=== PATIENT | male | born 1940 | race Caucasian/White ===

== ENCOUNTER 2024-04-03 19:52 | Inpatient (IN) | payer MEDICARE, OTHER ==
[~2024-04-03] VITALS: Ht 152.4 cm; Wt 60.3 kg
[2024-04-03] MEDS ORDERED: ACET-3117 PO (20:14)
[2024-04-03] MEDS ORDERED: ASPI-495 PO (20:26)
[2024-04-03] MEDS ORDERED: MAGN400C PO (20:26)
[2024-04-03] MEDS ORDERED: ROPI0.5T4 PO (20:26)
[2024-04-03] MEDS ORDERED: APIX2.5T PO (20:26)
[2024-04-03] MEDS ORDERED: FAMO-132 PO (20:26)
[2024-04-03] MEDS ORDERED: NICO1PAT35 TD (20:26)
[2024-04-03] MEDS ORDERED: AMLO-212 PO (20:26)
[2024-04-03] MEDS ORDERED: MAG30ORA GT (20:26)
[2024-04-03] MEDS ORDERED: CIPR-263 PO (20:26)
[2024-04-03] MEDS ORDERED: PYRI50CA PO (20:26)
[2024-04-03] MEDS ORDERED: ESCI-9 PO (20:26)
[2024-04-03] MEDS ORDERED: LORA0.5T48 PO (20:26)
[2024-04-03] MEDS ORDERED: DOCU100C36 PO (20:26)
[2024-04-03] MEDS ORDERED: MECL-159 PO (20:26)
[2024-04-03] MEDS ORDERED: METO-358 PO (20:26)
[2024-04-03] MEDS ORDERED: THIA100T74 PO (20:26)
[2024-04-03] MEDS ORDERED: ATOR80TA PO (20:26)
[2024-04-03 21:15] LABS: BASOPHILS # (AUTO) 0.1 K/UL (0.0-0.2); BASOPHILS % (AUTO) 1.2 % (0.0-2.0); EOSINOPHILS # (AUTO) 0.2 K/uL (0.0-0.7); EOSINOPHILS % (AUTO) 2.4 % (0.0-7.0); HEMATOCRIT 33.6 % (36.7-47.1); HEMOGLOBIN 10.7 g/dL (12.5-16.3); LYMPHOCYTES # (AUTO) 2.1 K/uL (0.8-4.8); LYMPHOCYTES % (AUTO) 24.5 % (20.5-51.5); MEAN CORPUSCULAR HEMOGLOBIN 26.3 uug (23.8-33.4); MEAN CORPUSCULAR HGB CONC 32 g/dL (32.5-36.3); MEAN CORPUSCULAR VOLUME 82.4 fL (73.0-96.2); MONOCYTES # (AUTO) 0.9 K/uL (0.1-1.30); MONOCYTES % (AUTO) 10.8 % (0.0-11.0); NEUTROPHILS # (AUTO) 5.3 K/uL (1.8-8.9); NEUTROPHILS % (AUTO) 61.1 % (38.5-71.5); PLATELET COUNT (AUTO) 271 K/uL (152-348); RED BLOOD CELL COUNT(AUTO) 4.08 MIL/uL (4.06-5.63); RED CELL DISTRIBUTION WIDTH 21.7 % (12.1-16.2); WHITE BLOOD COUNT (AUTO) 8.7 K/uL (3.6-10.2)
[2024-04-03 21:22] LABS: CALCIUM 9.1 mg/dL (8.5-10.1); CARBON DIOXIDE 25 mmol/L (21-32); CHLORIDE 102 mmol/L (98-107); CREATININE 1.6 mg/dL (0.6-1.3); GLUCOSE 218 mg/dL (74-106); POTASSIUM 3.5 mmol/L (3.5-5.1); SODIUM SERUM 137 mmol/L (136-145); UREA NITROGEN, BLOOD 29 mg/dL (7-18)
[2024-04-03 21:28] LABS: *BILIRUBIN,URIN NEGATIVE (NEGATIVE); *CLARITY,URINE CLEAR (CLEAR); *COLOR,URINE YELLOW (YELLOW); *KETONES,URINE NEGATIVE (NEGATIVE); *PROTEIN,URINE 1+ (NEGATIVE); *UROBILINOGEN,URINE 0.2 E.U./dl (NORMAL); LEUKOCYTE ESTERASE ,URINE TRACE (NEGATIVE); NITRITE, URINE NEGATIVE (NEGATIVE); PH,URINE 5.5 (5.0-8.0); UGLUCOSE TRACE (NEGATIVE)
[2024-04-03 21:28] LABS: ALANINE AMINOTRANSFERASE 40 U/L (16-63); ALKALINE PHOSPHATASE 91 U/L (50-136); ASPARTATE AMINOTRANSFERASE 21 U/L (15-37); BILIRUBIN,DIRECT 0.2 mg/dL (0.0-0.2); BILIRUBIN,TOTAL 0.4 mg/dL (0.2-1.0); TOTAL PROTEIN, SERUM 6.8 g/dL (6.4-8.2)
[2024-04-03 21:33] LABS: *BLOOD, URINE TRACE (NEGATIVE)
[2024-04-03 21:36] LABS: THYROID STIMULATING HORMONE 1.686 mIU/mL (0.358-3.740)
[2024-04-03 21:44] LABS: *AMPHETAMINE, URINE NEGATIVE (NEGATIVE); *BARBITURATE, URINE NEGATIVE (NEGATIVE); *BENZODIAZEPINE, URINE NEGATIVE (NEGATIVE); *CANNABINOID, URINE NEGATIVE (NEGATIVE); *COCCAINE, URINE NEGATIVE (NEGATIVE); *OPIATE, URINE NEGATIVE (NEGATIVE); *PHENCYCLIDINE SCREEN,URINE NEGATIVE (NEGATIVE); FENTANYL, URINE NEGATIVE (NEGATIVE)
[2024-04-03 21:59] LABS: DIFFERENTIAL COMMENT 1
[2024-04-03 22:01] LABS: ETHANOL < 3 MG/DL (0-10)
[2024-04-03 22:07] LABS: ACETAMINOPHEN < 10.0 ug/mL (10-30)
[2024-04-03 22:27] LABS: BACTERIA,URINE FEW /HPF (NONE SEEN); SQUAMOUS EPITHELIAL CELL,UR FEW /HPF (NONE SEEN); URINE AMORPHOUS URATE MODERATE /HPF
[2024-04-04] MEDS ORDERED: MAG HYDROX/AL HYDROX/SIMETH 30 ML LIQUID UDC PO PRN (03:45)
[2024-04-04] MEDS: BLOOD SUGAR DIAGNOSTIC 1 EACH STRIP VI ONE (03:45)
[2024-04-04] MEDS ORDERED: MAGNESIUM HYDROXIDE 30 ML LIQUID UDC PO PRN (03:45)
[2024-04-04] MEDS ORDERED: ACETAMINOPHEN 325 MG TABLET PO PRN (03:45)
[2024-04-04] MEDS ORDERED: ZOLPIDEM 5 MG TABLET PO PRN (03:45)
[2024-04-04] MEDS ORDERED: LORAZEPAM 1 MG TABLET PO PRN (03:45)
[2024-04-04 04:00] VITALS: BP 144/90; TEMP 98.1; O2SAT 98
[2024-04-04 08:01] VITALS: BP 156/91; TEMP 98; O2SAT 99
[2024-04-04] MEDS ORDERED: ONDA4VIA23 IV (12:19)
[2024-04-04] MEDS ORDERED: ERGO500040 PO (12:19)
[2024-04-04] MEDS ORDERED: SENN-18 PO (12:19)
[2024-04-04] MEDS: THIAMINE HCL 100 MG TABLET PO SCH (13:11)
[2024-04-04] MEDS: ESCITALOPRAM OXALATE 10 MG TABLET PO SCH (13:11)
[2024-04-04 15:35] VITALS: BP 153/89; TEMP 98.2; O2SAT 99
[2024-04-04] MEDS: CEphaleXIN 500 MG CAPSULE PO SCH (17:39)
[2024-04-04 20:04] VITALS: BP 174/88; TEMP 97.9; O2SAT 99
[2024-04-04] MEDS: QUETIAPINE FUMARATE 25 MG TABLET PO SCH (20:24)
[2024-04-04 21:08] VITALS: BP 144/90
[2024-04-05 07:59] VITALS: BP 146/96; TEMP 98.2; O2SAT 99
[2024-04-05] MEDS: MULTIVITAMINS,THERAPEUTIC TABLET PO SCH (08:54)
[2024-04-05 16:31] VITALS: BP 173/99; TEMP 98.3; O2SAT 98
[2024-04-05] MEDS ORDERED: SENNOSIDES 1 TABLET PO PRN (17:00)
[2024-04-05] MEDS ORDERED: MAG HYDROX/AL HYDROX/SIMETH 30 ML LIQUID UDC GT PRN (17:00)
[2024-04-05] MEDS: AMLODIPINE 5 MG TABLET PO SCH (17:14)
[2024-04-05] MEDS: DOCUSATE SODIUM 100 MG CAPSULE PO SCH (17:14)
[2024-04-05] MEDS: METOPROLOL SUCCINATE XL 50 MG TAB.SR.24H PO SCH (17:15)
[2024-04-05] MEDS: APIXABAN 2.5 MG TABLET PO SCH (18:06)
[2024-04-05 20:36] VITALS: BP 157/88; TEMP 98; O2SAT 99
[2024-04-05] MEDS: ropiniROLE 0.5 MG TABLET PO SCH (20:45)
[2024-04-05] MEDS: ATORVASTATIN 40 MG TABLET PO SCH (20:45)
[2024-04-05 21:00] VITALS: BP 147/82; O2SAT 97
[2024-04-06 08:23] VITALS: BP 147/81; TEMP 98.1; O2SAT 98
[2024-04-06] MEDS: THIAMINE HCL 100 MG TABLET PO SCH (08:31)
[2024-04-06] MEDS: FAMOTIDINE 20 MG TABLET PO SCH (08:32)
[2024-04-06] MEDS: PYRIDOXINE HCL 100 MG TABLET PO SCH (08:32)
[2024-04-06] MEDS ORDERED: NICOTINE 21 MG/24HR PATCH TD SCH (09:00)
[2024-04-06 16:19] VITALS: BP 125/77; TEMP 98; O2SAT 98
[2024-04-06] MEDS: NICOTINE 14 MG/24HR PATCH TD SCH (17:04)
[2024-04-06 20:00] VITALS: BP 151/71; TEMP 98.2; O2SAT 96
[2024-04-07 08:05] VITALS: BP 138/79; TEMP 98.3; O2SAT 98
[2024-04-07] MEDS: ERGOCALCIFEROL 50,000 UNIT CAPSULE PO SCH (08:20)
[2024-04-07 16:32] VITALS: BP 144/74; TEMP 98.1; O2SAT 98
[2024-04-07 21:13] VITALS: BP 157/77; TEMP 98; O2SAT 98
[2024-04-08 08:32] LABS: BASOPHILS # (AUTO) 0.1 K/UL (0.0-0.2); BASOPHILS % (AUTO) 1.4 % (0.0-2.0); EOSINOPHILS # (AUTO) 0.2 K/uL (0.0-0.7); EOSINOPHILS % (AUTO) 2.5 % (0.0-7.0); HEMATOCRIT 35.2 % (36.7-47.1); HEMOGLOBIN 11.3 g/dL (12.5-16.3); LYMPHOCYTES # (AUTO) 2.4 K/uL (0.8-4.8); LYMPHOCYTES % (AUTO) 30.8 % (20.5-51.5); MEAN CORPUSCULAR HEMOGLOBIN 26.8 uug (23.8-33.4); MEAN CORPUSCULAR HGB CONC 32 g/dL (32.5-36.3); MEAN CORPUSCULAR VOLUME 83.3 fL (73.0-96.2); MONOCYTES # (AUTO) 0.8 K/uL (0.1-1.30); NEUTROPHILS # (AUTO) 4.4 K/uL (1.8-8.9); NEUTROPHILS % (AUTO) 55.3 % (38.5-71.5); PLATELET COUNT (AUTO) 381 K/uL (152-348); RED BLOOD CELL COUNT(AUTO) 4.23 MIL/uL (4.06-5.63); RED CELL DISTRIBUTION WIDTH 23.1 % (12.1-16.2); WHITE BLOOD COUNT (AUTO) 7.9 K/uL (3.6-10.2)
[2024-04-08 08:38] LABS: DIFFERENTIAL COMMENT 1
[2024-04-08 08:41] LABS: ALANINE AMINOTRANSFERASE 34 U/L (16-63); ALBUMIN 3.6 g/dL (3.4-5.0); ALKALINE PHOSPHATASE 88 U/L (50-136); ASPARTATE AMINOTRANSFERASE 12 U/L (15-37); BILIRUBIN,TOTAL 0.5 mg/dL (0.2-1.0); CALCIUM 9.4 mg/dL (8.5-10.1); CARBON DIOXIDE 31 mmol/L (21-32); CHLORIDE 103 mmol/L (98-107); CREATININE 1.4 mg/dL (0.6-1.3); GLUCOSE 113 mg/dL (74-106); MAGNESIUM 2.4 mg/dL (1.8-2.4); PHOSPHOROUS 3.6 mg/dL (2.5-4.9); POTASSIUM 4.7 mmol/L (3.5-5.1); SODIUM SERUM 139 mmol/L (136-145); TOTAL PROTEIN, SERUM 7.4 g/dL (6.4-8.2); UREA NITROGEN, BLOOD 20 mg/dL (7-18)
[2024-04-08 08:42] VITALS: BP 154/75; TEMP 98; O2SAT 98
[2024-04-08 15:26] VITALS: BP 117/68; TEMP 98; O2SAT 98
[2024-04-08 19:58] VITALS: BP 156/74; TEMP 97.9; O2SAT 96
[2024-04-09 08:00] VITALS: BP 168/78; TEMP 98; O2SAT 99
[2024-04-09 15:27] VITALS: BP 116/68; TEMP 98; O2SAT 99
[2024-04-09 19:58] VITALS: BP 150/72; TEMP 97.9; O2SAT 98
[2024-04-10 07:58] VITALS: BP 171/84; TEMP 98; O2SAT 99
[2024-04-10 15:36] VITALS: BP 108/55; TEMP 98; O2SAT 98
[2024-04-10 20:24] VITALS: BP 168/88; TEMP 98.7; O2SAT 98
[2024-04-10 20:43] VITALS: BP 110/68
[2024-04-11 07:54] VITALS: BP 134/77; TEMP 98; O2SAT 98
[2024-04-11 16:03] VITALS: BP 157/85; TEMP 98; O2SAT 98
[2024-04-11 20:00] VITALS: BP 149/88; TEMP 97.9; O2SAT 97
[2024-04-12 08:10] VITALS: BP 158/85; TEMP 98; O2SAT 98
[2024-04-12 16:11] VITALS: BP 109/70; TEMP 98.1; O2SAT 98
[2024-04-12 20:00] VITALS: BP 156/73; TEMP 98.1; O2SAT 97
[2024-04-13 07:59] VITALS: BP 157/89; TEMP 98.1; O2SAT 98
[2024-04-13 16:58] VITALS: BP 162/87; TEMP 98; O2SAT 98
[2024-04-13 20:22] VITALS: BP 168/82; TEMP 98; O2SAT 98
[2024-04-14 07:59] LABS: BASOPHILS # (AUTO) 0.1 K/UL (0.0-0.2); BASOPHILS % (AUTO) 1.6 % (0.0-2.0); EOSINOPHILS # (AUTO) 0.3 K/uL (0.0-0.7); EOSINOPHILS % (AUTO) 3.8 % (0.0-7.0); HEMATOCRIT 32.6 % (36.7-47.1); HEMOGLOBIN 10.6 g/dL (12.5-16.3); LYMPHOCYTES % (AUTO) 25.1 % (20.5-51.5); MEAN CORPUSCULAR HEMOGLOBIN 26.9 uug (23.8-33.4); MEAN CORPUSCULAR HGB CONC 33 g/dL (32.5-36.3); MEAN CORPUSCULAR VOLUME 82.5 fL (73.0-96.2); MONOCYTES # (AUTO) 0.6 K/uL (0.1-1.30); NEUTROPHILS % (AUTO) 62.5 % (38.5-71.5); PLATELET COUNT (AUTO) 317 K/uL (152-348); RED BLOOD CELL COUNT(AUTO) 3.96 MIL/uL (4.06-5.63); RED CELL DISTRIBUTION WIDTH 22.7 % (12.1-16.2)
[2024-04-14 08:02] VITALS: BP 163/86; TEMP 98.5; O2SAT 98
[2024-04-14 08:06] LABS: DIFFERENTIAL COMMENT 1
[2024-04-14 08:13] LABS: ALANINE AMINOTRANSFERASE 27 U/L (16-63); ALBUMIN 3.4 g/dL (3.4-5.0); ALKALINE PHOSPHATASE 92 U/L (50-136); ASPARTATE AMINOTRANSFERASE 10 U/L (15-37); BILIRUBIN,TOTAL 0.5 mg/dL (0.2-1.0); CALCIUM 8.9 mg/dL (8.5-10.1); CARBON DIOXIDE 31 mmol/L (21-32); CHLORIDE 104 mmol/L (98-107); CREATININE 1.2 mg/dL (0.6-1.3); GLUCOSE 117 mg/dL (74-106); PHOSPHOROUS 3.4 mg/dL (2.5-4.9); POTASSIUM 4.4 mmol/L (3.5-5.1); SODIUM SERUM 139 mmol/L (136-145); UREA NITROGEN, BLOOD 18 mg/dL (7-18)
[2024-04-14 08:14] LABS: MAGNESIUM 2.2 mg/dL (1.8-2.4); TOTAL PROTEIN, SERUM 6.9 g/dL (6.4-8.2)
[2024-04-14 10:51] VITALS: BP 145/65
[2024-04-14 16:30] VITALS: BP 167/87; TEMP 98.2; O2SAT 98
[2024-04-14 20:00] VITALS: BP 152/75; TEMP 97.8; O2SAT 98
[2024-04-15 08:05] VITALS: BP 148/88; TEMP 98; O2SAT 99
[2024-04-15] MEDS: LISINOPRIL 5 MG TABLET PO SCH (12:38)
[2024-04-15 15:28] VITALS: BP 141/74; TEMP 98; O2SAT 100
[2024-04-15 20:00] VITALS: BP 144/80; TEMP 98; O2SAT 97
[2024-04-16 07:30] VITALS: BP 147/86; TEMP 98; O2SAT 99
[2024-04-16 15:25] VITALS: BP 141/70; TEMP 98.4; O2SAT 98
[2024-04-16 20:00] VITALS: BP 125/66; TEMP 97.9; O2SAT 98
[2024-04-17 08:00] VITALS: BP 150/76; TEMP 98; O2SAT 98
[2024-04-17 15:07] VITALS: BP 150/76; TEMP 98; O2SAT 99
[2024-04-17 19:51] VITALS: BP 146/72; TEMP 97.8; O2SAT 98
[2024-04-18 07:52] VITALS: BP 140/95; TEMP 98; O2SAT 99
[2024-04-18 10:19] VITALS: BP 140/95
== END 2024-04-18 14:30 | disposition home or self-care (01) | DRG 885 ==
LOC: ER 19:56 → GPS 23:13
PROVIDERS: ADMIT Psychiatry & Neurology Psychiatry; ATTEND Nurse Practitioner Acute Care
DX: F39 Unspecified mood [affective] disorder (principal); N18.30 Chronic kidney disease, stage 3 unspecified; N17.9 Acute kidney failure, unspecified; F10.229 Alcohol dependence with intoxication, unspecified; N39.0 Urinary tract infection, site not specified; F10.259 Alcohol dependence with alcohol-induced psychotic disorder, unspecified; D68.59 Other primary thrombophilia; F29 Unspecified psychosis not due to a substance or known physiological condition; I48.0 Paroxysmal atrial fibrillation; R45.850 Homicidal ideations; F41.9 Anxiety disorder, unspecified; Z88.6 Allergy status to analgesic agent; Z88.0 Allergy status to penicillin; I25.10 Atherosclerotic heart disease of native coronary artery without angina pectoris; Z95.5 Presence of coronary angioplasty implant and graft; Z87.440 Personal history of urinary (tract) infections; Z87.891 Personal history of nicotine dependence; Z79.82 Long term (current) use of aspirin; E78.5 Hyperlipidemia, unspecified; D63.1 Anemia in chronic kidney disease; I12.9 Hypertensive chronic kidney disease with stage 1 through stage 4 chronic kidney disease, or unspecified chronic kidney disease; Z79.01 Long term (current) use of anticoagulants; Z79.899 Other long term (current) drug therapy; R73.9 Hyperglycemia, unspecified
CPT/HCPCS: 36415; 83735; 84100; 84443; 85025; 93005; G0480